=== PATIENT | female | born 1940 | race Caucasian/White ===

== ENCOUNTER 2016-10-09 19:36 | Emergency (ER) | payer MEDICARE ==
[~2016-10-09] VITALS: Ht 157.5 cm; Wt 81.8 kg
[~2016-10-09 19:36] MED LIST: /MOXI40TA PO; ALBUTEROL INHALER INH; ASPI81TA83 PO; CLARITAN PO; FLUTICASONE NASAL INH; SIMV20TA2 PO
[2016-10-09] MEDS ORDERED: PANT40TA2 PO (19:58)
[2016-10-09] MEDS ORDERED: ATOR1TAB21 PO (19:58)
[2016-10-09] MEDS ORDERED: VITA-115 PO (20:01)
[2016-10-09] MEDS ORDERED: CLAR10CA3 PO (20:01)
[2016-10-09] MEDS ORDERED: CALC600T57 PO (20:01)
[2016-10-09] MEDS ORDERED: TIZA4CAP3 PO (20:01)
[2016-10-09 21:11] LABS: BASO % 0.5 % (0.0-1.0); EOS # 0.2 K/mm3 (0.0-0.50); EOS % 1.9 % (0.0-3.0); LARGE UNSTAINED CELL # 0.1 K/mm3 (0.0-0.4); LARGE UNSTAINED CELL % 1.1 % (0.0-4.0); LYMPH # 1.4 K/mm3 (1.5-4.5); LYMPH % 14.8 % (24.0-44.0); MEAN CORPUSCULAR HEMOGLOBIN 31.1 pg (27.0-33.0); MEAN CORPUSCULAR HGB CONC 34.7 g/dl (32.0-36.5); MEAN CORPUSCULAR VOLUME 89.8 fl (80.0-96.0); MONO # 0.2 K/mm3 (0.0-0.8); MONO % 2.8 % (0.0-5.0); NEUTROPHILS # 6.9 K/mm3 (1.8-7.7); PLATELET COUNT, AUTOMATED 217 k/mm3 (150-450); RED CELL DISTRIBUTION WIDTH 12.8 % (11.5-14.5); WHITE BLOOD COUNT 8.7 K/mm3 (4.0-10.0)
[2016-10-09] MEDS ORDERED: MECLIZINE 25 MG TABLET PO ONE (21:15)
[2016-10-09 22:27] LABS: ANION GAP 11 MEQ/L (8-16); BLOOD UREA NITROGEN 21 MG/DL (7-18); CALCIUM LEVEL 8.4 MG/DL (8.8-10.2); CARBON DIOXIDE LEVEL 24 MEQ/L (21-32); CHLORIDE LEVEL 104 MEQ/L (98-107); CREATININE FOR GFR 0.99 MG/DL (0.55-1.02); GLOMERULAR FILTRATION RATE 57.8 (>39); GLUCOSE, FASTING 117 MG/DL (83-110); SODIUM LEVEL 139 MEQ/L (136-145); T UPTAKE 37 % (30-39); THYROXINE (T4) 9.9 UG/DL (4.5-12.0)
[2016-10-09 23:19] VITALS: BP 142/68
[2016-10-09 23:32] VITALS: O2SAT 99
[2016-10-09] MEDS ORDERED: MECL-68 PO (23:38)
--- NOTE | 2016-10-10 08:28 | REP ---
PA and lateral chest: There are no comparisons. The lung graham are clear. The cardiac size is normal The mckenzie, mediastinum, and bony thorax are unremarkable. Impression: Negative PA and lateral chest. Signed by Benoit Hess MD 10/10/2016 08:19 A
--- NOTE | 2016-10-10 21:31 | ECGEPIP ---
Stationary ECG Study [facility] - ED Test Date: 2016-10-09 Pat Name: PIPO WALDRON Department: Room: - Gender: F Watch Commander: tk : [id number] Requested By: VIDHYA DELEON Order Number: [id number] Reading MD: Katarina Paiz Measurements Intervals [place] Rate: 66 P: 28 WV: 162 QRS: -33 QRSD: 90 T: 16 QT: 409 QTc: 432 Interpretive Statements SINUS RHYTHM MARKED LEFT AXIS DEVIATION NO PRIOR FOR COMPARISON Electronically Signed On 10-10-2016 21:31:47 EDT by Katarina Paiz
== END 2016-10-09 23:34 | disposition home or self-care (01) ==
LOC: M ED 19:36
DX: R42 Dizziness and giddiness (principal); I10 Essential (primary) hypertension; E78.5 Hyperlipidemia, unspecified; J45.909 Unspecified asthma, uncomplicated; Z90.89 Acquired absence of other organs; Z79.82 Long term (current) use of aspirin; Z79.899 Other long term (current) drug therapy